=== PATIENT | male | born 1970 | race Caucasian/White ===

== ENCOUNTER 2017-01-31 15:20 | Emergency (ER) | payer OTHER ==
--- NOTE | 2017-01-31 17:09 | ER Document Report ---
ED Medical Screen (RME) - General Chief Complaint: Foot Pain Stated Complaint: POSSIBLE SNAKE BITE/RIGHT LEG Time Seen by Provider: 01/31/17 17:02 Mode of Arrival: Ambulatory Information source: Patient TRAVEL OUTSIDE OF THE [place] IN LAST 30 DAYS: No - HPI Patient complains to provider of: possible snake bite Onset: This afternoon - pt states he was in some bushes anad felt pain in area of R ankle -- he didn't see anyhting but later noticed to bite dailey he thinks may be from a snake. States has some swelling of foot now - Related Data Allergies/Adverse Reactions: aspirin [Aspirin] Allergy (Verified 01/31/17 15:33) Penicillins Allergy (Verified 01/31/17 15:33) Past Medical History - Social History Chew tobacco use (# tins/day): No Frequency of alcohol use: 6-8 beers daily Drug Abuse: None - Past Medical History Cardiac Medical History: Reports: Hx Hypertension Renal/ Medical History: Denies: Hx Peritoneal Dialysis Past Surgical History: Reports: Hx Orthopedic Surgery - Right Tibia ORIF - Immunizations Hx Diphtheria, Pertussis, Tetanus Vaccination: No Physical Exam - Vital signs Vitals: Temp Pulse Resp BP Pulse Ox 98.1 F 97 20 171/98 H 97 01/31/17 15:32 01/31/17 15:32 01/31/17 15:32 01/31/17 15:32 01/31/17 15:32 Course - Vital Signs Vital signs: Temp Pulse Resp BP Pulse Ox 98.1 F 97 20 171/98 H 97 01/31/17 15:32 01/31/17 15:32 01/31/17 15:32 01/31/17 15:32 01/31/17 15:32
--- NOTE | 2017-01-31 17:57 | RADIOLOGY REPORT (SQ) ---
EXAM DESCRIPTION: TIBIA FIBULA RIGHT COMPLETED DATE/TIME: 01/31/2017 5:40 pm REASON FOR STUDY: possible snake bite COMPARISON: None. NUMBER OF VIEWS: Two views, 4 images of the right tibia and fibula. LIMITATIONS: None. FINDINGS: Normal bone density. No fracture or lesion. No radiopaque foreign body. Soft tissues no rmal. OTHER: No other significant finding. IMPRESSION: NORMAL STUDY. TECHNICAL DOCUMENTATION: JOB ID: [id number]
--- NOTE | 2017-01-31 17:59 | ER Document Report ---
ED Snake Bite - General Chief Complaint: Foot Pain Stated Complaint: POSSIBLE SNAKE BITE/RIGHT LEG Time Seen by Provider: 01/31/17 17:02 Mode of Arrival: Ambulatory Information source: Patient TRAVEL OUTSIDE OF THE [place] IN LAST 30 DAYS: No - HPI Patient complains to provider of: possible snakebite Onset: This afternoon Where: Outdoors Location of injury: [place] Animal captured or known: No Animal control notified: No Quality of pain: Burning Severity: Bitten Pain Level: 1 Lost Consciousness: No Remembers: Injury, Coming to hospital Notes: patient is a 46-year-old male who presents to the emergency room for bite to right lower leg just proximal to the ankle, states he was [place] this [place] where there is tall grass, he felt something bite him on the right ankle, and around 1:40pm, it initially felt like a single sting , he initially did not think anything of it and carried on with his day, as the day progressed he started to notice a tingling sensation in his toes, as well as some swelling in the foot, at one point in time he had some lightheadedness and blurred vision but that has since resolved, he denies any pain at present time, he does report that his neighbor killed "a bunch of copperhead" last year , although he himself has never seen a copperhead on his property, [place] the right next to the neighbors property which has a very tall grass, he is unsure whether he was actually bit by a snake or something else - Related Data Allergies/Adverse Reactions: aspirin [Aspirin] Allergy (Verified 01/31/17 15:33) Penicillins Allergy (Verified 01/31/17 15:33) Past Medical History - General Information source: Patient - Social History Smoking Status: Former Smoker Chew tobacco use (# tins/day): No Frequency of alcohol use: 6-8 beers daily Drug Abuse: None Family History: Reviewed & Not Pertinent Patient has suicidal ideation: No Patient has homicidal ideation: No - Past Medical History Cardiac Medical History: Reports: Hx Hypertension Renal/ Medical History: Denies: Hx Peritoneal Dialysis Past Surgical History: Reports: Hx Orthopedic Surgery - Right Tibia ORIF - Immunizations Hx Diphtheria, Pertussis, Tetanus Vaccination: No Review of Systems - Review of Systems Constitutional: No symptoms reported EENT: No symptoms reported Cardiovascular: No symptoms reported Respiratory: No symptoms reported Gastrointestinal: No symptoms reported Genitourinary: No symptoms reported Male Genitourinary: No symptoms reported Musculoskeletal: See HPI Skin: See HPI Hematologic/Lymphatic: No symptoms reported Neurological/Psychological: See HPI -: Yes All other systems reviewed and negative Physical Exam - Vital signs Vitals: Temp Pulse Resp BP Pulse Ox 98.1 F 97 20 171/98 H 97 01/31/17 15:32 01/31/17 15:32 01/31/17 15:32 01/31/17 15:32 01/31/17 15:32 - Notes Notes: - General General appearance: Appears well, Alert In distress: None - HEENT Head: Normocephalic, Atraumatic Eyes: Normal Conjunctiva: Normal Extraocular movements intact: Yes Eyelashes: Normal Pupils: PERRL - Respiratory Respiratory status: No respiratory distress - Cardiovascular Rhythm: Regular - Abdominal Inspection: Normal - Back Back: Normal - Extremities General upper extremity: Normal inspection General lower extremity: Right Lower extremity: Lateral portion of the right lower extremity just proximal to the lateral nail there are 4 small superficial appearing puncture wounds, with mild tenderness to palpate, no erythema, swelling to the foot, 2+ DP pulses, distal sensation and motor is intact - Neurological Neuro grossly intact: Yes Orientation: AAOx4 [place] Coma Scale Eye Opening: Spontaneous [place] Coma Scale Verbal: Oriented [place] Coma Scale Motor: Obeys Commands [place] Coma Scale Total: 15 - Psychological Associated symptoms: Normal affect, Normal mood - Skin Skin Temperature: Warm Skin Moisture: Dry Skin Color: Normal Course - Re-evaluation Re-evalutation: 01/31/17 19:22 Laboratory findings unremarkable, physical exam findings are not consistent with a venomous snakebite, however patient was provided with a tetanus shot, and information for follow-up, advised to return if symptoms worsen, patient and spouse at bedside acknowledge understanding and agreement with this plan - Vital Signs Vital signs: Temp Pulse Resp BP Pulse Ox 98.1 F 97 20 171/98 H 97 01/31/17 15:32 01/31/17 15:32 01/31/17 15:32 01/31/17 15:32 01/31/17 15:32 - Laboratory Result Diagrams: 01/31/17 18:29 01/31/17 18:29 Laboratory results interpreted by me: 01/31/17 18:29 Calcium 10.5 H - Diagnostic Test Radiology reviewed: Image reviewed, Reports reviewed Discharge - Discharge Clinical Impression: Animal bite of ankle Qualifiers: Encounter type: initial encounter Laterality: right Qualified Code(s): S91.051A - Open bite, right ankle, initial encounter Condition: Stable Disposition: HOME, SELF-CARE Instructions: Snakebites ([facility]), Animal Bites ([facility]), Ice & Elevation ([facility]), Tetanus Immunization Given ([facility]) Additional Instructions: Follow up with your primary care provider in one to 2 days. Return to the emergency room immediately if symptoms worsen or any additional concerns.
[2017-01-31] MEDS ORDERED: DIPH/PERTUSS(ACELL)/TETANUS VAC/PF 0.5 ML SYR (>=10YO) IM ONE (18:13)
[2017-01-31 18:47] LABS: ABSOLUTE BASOPHILS # (AUTO) 0.1 10^3/uL (0.0-0.2); ABSOLUTE EOSINOPHILS # (AUTO) 0.2 10^3/uL (0.0-0.6); ABSOLUTE LYMPHOCYTES (AUTO) 2.6 10^3/uL (0.5-4.7); ABSOLUTE MONOCYTES (AUTO) 0.9 10^3/uL (0.1-1.4); ABSOLUTE NEUT (AUTO) 5.9 10^3/uL (1.7-8.2); BASOPHILS % (AUTO) 1.1 % (0-2); EOSINOPHILS % (AUTO) 1.6 % (0-6); HEMATOCRIT 43.7 % (37.9-51.0); HEMOGLOBIN 14.5 g/dL (13.5-17.0); HGB HCT DIFFERENCE -0.2; LYMPHOCYTES % (AUTO) 26.9 % (13-45); MEAN CORPUSCULAR HEMOGLOBIN 30.6 pg (27.0-33.4); MEAN CORPUSCULAR HGB CONC 33.3 g/dL (32.0-36.0); MEAN CORPUSCULAR VOLUME 92 fl (80-97); MONOCYTES % (AUTO) 9.4 % (3-13); RED BLOOD COUNT 4.76 10^6/uL (4.35-5.55); RED CELL DISTRIBUTION WIDTH 13.3 % (11.5-14.0); WHITE BLOOD COUNT 9.7 10^3/uL (4.0-10.5)
[2017-01-31 18:49] LABS: PROTHROMBIN TIME 12.8 SEC (11.4-15.4)
[2017-01-31 18:50] LABS: FIBRINOGEN 320 mg/dL (209-497); PARTIAL THROMBOPLASTIN TIME 26.5 SEC (23.5-35.8)
[2017-01-31 19:03] LABS: APPEARANCE,URINE CLEAR; BILIRUBIN,URINE NEGATIVE (NEGATIVE); GLUCOSE, URINE NEGATIVE (NEGATIVE); KETONES,URINE NEGATIVE (NEGATIVE); LEUKOCYTE ESTERASE,URINE NEGATIVE (NEGATIVE); NITRITE,URINE NEGATIVE (NEGATIVE); PROTEIN,URINE NEGATIVE (NEGATIVE); URINE SPECIFIC GRAVITY 1.014; UROBILINOGEN,URINE NEGATIVE mg/dL (<2.0)
[2017-01-31 19:05] LABS: ALANINE AMINOTRANSFERASE 58 U/L (21-72); ALBUMIN 4.5 g/dL (3.5-5.0); ALKALINE PHOSPHATASE 97 U/L (38-126); ANION GAP 12 (5-19); ASPARTATE AMINO TRANSFERASE 28 U/L (17-59); BILIRUBIN,DIRECT 0.2 mg/dL (0.0-0.4); BILIRUBIN,TOTAL 0.5 mg/dL (0.2-1.3); BLOOD UREA NITROGEN 19 mg/dL (7-20); CALCIUM 10.5 mg/dL (8.4-10.2); CARBON DIOXIDE 28 mmol/L (22-30); CHLORIDE 100 mmol/L (98-107); CREATINE KINASE 82 U/L (55-170); CREATININE RESULT 0.79 mg/dL (0.52-1.25); GLUCOSE 94 mg/dL (75-110); POTASSIUM 4.2 mmol/L (3.6-5.0); SODIUM 140.2 mmol/L (137-145); TOTAL PROTEIN 7.5 g/dL (6.3-8.2)
[2017-01-31 19:06] LABS: D-DIMER < 0.27 ug/mL (0.00-0.50)
[2017-01-31 19:16] LABS: CREATINE KINASE MB 0.96 ng/mL (<4.55)
[2017-01-31 19:24] LABS: TROPONIN I < 0.012 ng/mL
[2017-01-31] MEDS ORDERED: ACETAMINOPHEN 325 MG TABLET PO ONE (19:24)
[2017-01-31 20:36] VITALS: BP 160/88
== END 2017-01-31 20:36 | disposition home or self-care (01) ==
LOC: ER 15:20
DX: S91.051A Open bite, right ankle, initial encounter (principal); M79.671 Pain in right foot; W59.11XA Bitten by nonvenomous snake, initial encounter; I10 Essential (primary) hypertension; Z23 Encounter for immunization; Z88.6 Allergy status to analgesic agent; Z88.0 Allergy status to penicillin; Z87.891 Personal history of nicotine dependence
CPT/HCPCS: 36415; 80053; 81001; 82550; 82553; 83874; 84484; 85025; 85362; 85379; 85384; 85610; 85730; 90471; 90715; 99283